=== PATIENT | male | born 1950 | race Caucasian/White ===

== ENCOUNTER 2018-01-04 14:01 | Day surgery (SDC) | payer MEDICARE, OTHER ==
[~2018-01-04] VITALS: Ht 180.3 cm; Wt 81.5 kg
[2018-01-04 14:20] VITALS: BP 123/73; PULSE 73; TEMP 97.8
[2018-01-04] MEDS ORDERED: FLOMAX 0.40.4 MG/CAP PO (14:26)
[2018-01-04] MEDS ORDERED: CLARITIN 1010 MG/TAB PO (14:26)
[2018-01-04] MEDS ORDERED: EPA FISH OIL1 SGL PO (14:26)
[2018-01-04] MEDS ORDERED: PRILOSEC 20MG20 MG PO (14:26)
[2018-01-04] MEDS ORDERED: VITAMIN C500 MG PO (14:27)
[2018-01-04] MEDS ORDERED: LIPITOR 40MG TA40 MG PO (14:27)
[2018-01-04 15:35] VITALS: BP 106/84; PULSE 72; TEMP 97.9
[2018-01-04 15:45] VITALS: BP 101/73; PULSE 75
[2018-01-04 16:00] VITALS: BP 100/70; PULSE 66
== END 2018-01-04 16:11 | disposition home or self-care (01) ==
LOC: SDCO 14:01
DX: K22.2 Esophageal obstruction (principal); K21.9 Gastro-esophageal reflux disease without esophagitis; R13.10 Dysphagia, unspecified; Z87.891 Personal history of nicotine dependence
CPT/HCPCS: C1726; J2250; J3010; J7030

== ENCOUNTER → 2018-08-16 | Outpatient (CLI) | payer MEDICARE, OTHER ==
[~2018-08-16] MED LIST: CLARITIN 1010 MG/TAB PO; EPA FISH OIL1 SGL PO; FLOMAX 0.40.4 MG/CAP PO; LIPITOR 40MG TA40 MG PO; PRILOSEC 20MG20 MG PO; VITAMIN C500 MG PO
== END ==
LOC: COL.CARD 06:50
DX: Z01.818 Encounter for other preprocedural examination (principal); J34.3 Hypertrophy of nasal turbinates